=== PATIENT | female | born 1950 | race African-American/Black ===

== ENCOUNTER 2018-08-19 15:48 | Emergency (ER) | payer SELFPAY ==
[~2018-08-19] VITALS: Ht 152.4 cm; Wt 61.7 kg
--- NOTE | 2018-08-19 16:01 | NUR ---
ED Nurse Note: Pt came into the ER w/ complaints of right knee swelling x3-4 days. Pt denies having pain or trauma to the area. Pt is A + O x4. Ambulatory. Skin warm to touch.
--- NOTE | 2018-08-19 16:45 | NUR ---
ED Nurse Note: Xray at the bedside.
--- NOTE | 2018-08-19 17:00 | Emergency Room Report ---
History of Present Illness General Chief Complaint: Lower Extremity Injury Source: Patient Present Illness HPI 68-year-old female presents to the emergency department complaining of intermittent swelling to the right knee most notably after strenuous activities. Patient reports 5 out of 10 in severity dull ache when she has swelling. Patient denies clicking she does report some rubbing sensation when she is exercising. Patient states that she walks a lot and exercises regularly she denies previous injury to this extremity she denies trauma or fall. No relieving factors at this time. Denies numbness tingling or loss of sensation or gross motor movements of the righ leg/knee. pt. also c/o frequent sneezing and PND. denies fevers, chills, or unilateral facial pain with congestion. Allergies: Coded Allergies: No Known Allergies (Unverified , 08/19/18) Patient History Past Medical History: see triage record Past Surgical History: none Pertinent Family History: none Last Menstrual Period: na Now: No Immunizations: UTD Reviewed Nursing Documentation: PMH: Agreed; PSxH: Agreed Nursing Documentation-PMH Past Medical History: No Stated History Review of Systems All Other Systems: negative except mentioned in HPI Physical Exam Vital Signs Date Time Temp Pulse Resp B/P (MAP) Pulse Ox O2 Delivery O2 Flow Rate FiO2 08/19/18 15:54 98.2 70 18 100 Room Air Sp02 EP Interpretation: reviewed, normal General Appearance: no apparent distress, alert, GCS 15, non-toxic Head: normocephalic, atraumatic Eyes: bilateral eye normal inspection, bilateral eye PERRL ENT: hearing grossly normal, normal voice Neck: full range of motion Respiratory: lungs clear, normal breath sounds, speaking full sentences Cardiovascular #1: regular rate, rhythm Cardiovascular #2: 2+ dorsalis pedis (R) - post. tib. Musculoskeletal: back normal, gait/station normal, normal range of motion, swelling - right knee, anteriorly, no obvious deformity, no increased laxity. FROM no clicking. Neurologic: alert, oriented x3, responsive, motor strength/tone normal, sensory intact, normal gait, speech normal, grossly normal Psychiatric: judgement/insight normal Skin: normal color, no rash, warm/dry, well hydrated Medical Decision Making PA Attestation Dr. Parker is my supervising Physician whom patient management has been discussed with. Diagnostic Impression: Primary Impression: Arthritis Additional Impression: Post-nasal drainage ER Course 68-year-old female presents to the emergency department complaining of intermittent swelling to the right knee most notably after strenuous activities. Patient reports 5 out of 10 in severity dull ache when she has swelling. Patient denies clicking she does report some rubbing sensation when she is exercising. Patient states that she walks a lot and exercises regularly she denies previous injury to this extremity she denies trauma or fall. No relieving factors at this time. Denies numbness tingling or loss of sensation or gross motor movements of the righ leg/knee. pt. also c/o frequent sneezing and PND. denies fevers, chills, or unilateral facial pain with congestion. Ddx considered but are not limited to Fracture, dislocation, contusion, septic joint, pseudo gout, gout, cellulitis, effusion , Sprain/Strain/Spasm, ligamental injury just to name a few. Vital signs: are WNL, pt. is afebrile H&PE are most consistent with knee strain/ overuse/ arthritis ORDERS: X-ray Right knee complete 3 view - negative for fx, Dislocation, or significant soft tissue injury ED INTERVENTIONS: -Motrin PO - [place] wrap applied by technician automatic. -I do not identify an emergent condition at this time. With current presentation , pt. is stable for close outpatient follow up and conservative treatment. D/ w pt. to return promptly to ED with worsening or new symptoms.- Pt. verbalizes' understanding and agreement with proposed treatment plan.proposed treatment plan. DISCHARGE: At this time pt. is stable for d/c to home. Will provide printed patient care instructions, and any necessary prescriptions. Care plan and follow up instructions have been discussed with the patient prior to discharge. Other X-Ray Diagnostic Results Other X-Ray Diagnostic Results : X-Ray ordered: Right knee # of Views/Limited Vs Complete: 3 View Indication: Pain EP Interpretation: Yes ALEXANDRE Xray: Interpretation reviewed, by supervising MD, and agrees with findings. Interpretation: no dislocation, no soft tissue swelling, no fractures Impression: No acute disease Electronically Signed by: Sadie Najera PA-C Last Vital Signs Date Time Temp Pulse Resp B/P (MAP) Pulse Ox O2 Delivery O2 Flow Rate FiO2 08/19/18 15:54 98.2 70 18 100 Room Air Status: improved Disposition: HOME, SELF-CARE Condition: Stable Scripts Cetirizine Hcl* (ZYRTEC*) 10 Mg Tablet 10 MG ORAL DAILY, #30 TAB 0 Refills Prov: Sadie Najera 08/19/18 Ibuprofen* (MOTRIN*) 600 Mg Tablet 600 MG ORAL THREE TIMES A DAY, #20 TAB 0 Refills Prov: Sadie Najera 08/19/18 Referrals: NOT CHOSEN IPA/MD,REFERRING (PCP) Patient Instructions: Arthritis, [id number] Additional Instructions: Take medications as directed. Follow up with a Primary Care Provider in 3-5 days, even if your symptoms have resolved. --Please review list of primary care clinics, if you do not already have a primary care provider Return sooner to ED if new symptoms occur, or current symptoms become worse. - Please note that this Emergency Department Report was dictated using [employer] designer technology software, occasionally this can lead to erroneous entry secondary to interpretation by the dictation equipment. Sadie Najera August 19, 2018 17:00
[2018-08-19] MEDS ORDERED: IBUPROFEN600 MG ORAL (17:15)
[2018-08-19] MEDS ORDERED: ZYRTEC10 MG ORAL (17:15)
[2018-08-19 17:27] VITALS: BP 188/105
--- NOTE | 2018-08-19 17:28 | NUR ---
ER DISCHARGE NOTE: Patient is cleared to be discharged per ERMD, pt is aox4, on room air, with stable vital signs. pt was given dc and prescription instructions, pt was able to verbalize understanding, pt id band removed without complications. pt is able to ambulate with steady gait. pt took all belongings. Cane and right knee was Aced wrapped for pt.
--- NOTE | 2018-08-20 11:25 | Diagnostic Imaging Report ---
Indication: Pain Knee pain/trauma 3 views of the right knee were obtained. Findings: No acute fracture, malalignment, or joint effusion are identified. The bones are osteopenic. Joint space is relatively well-maintained. Impression: Negative for acute findings.
== END 2018-08-19 17:28 | disposition home or self-care (01) ==
LOC: EMR 16:10
DX: M19.90 Unspecified osteoarthritis, unspecified site (principal); M85.861 Other specified disorders of bone density and structure, right lower leg; R09.82 Postnasal drip
CPT/HCPCS: 99283